=== PATIENT | female | born 1980 | race Caucasian/White ===

== ENCOUNTER 2016-06-21 11:36 | Emergency (ER) | payer OTHER ==
[~2016-06-21 11:36] MED LIST: AMOXICILLIN500 M1 PO; BACTROBAN22 GM TP; DOXYCYCLINE PO; FELDENE10 MG; FIORICET W/CODE1 CAP PO; FLEXERIL10 M1; KEFLEX500 M1 PO; MIGRELIEF CAPL1 EACH PO; PHENERGAN PO; PHENERGAN25 M1 PO; TORADOL10 MG; ULTRAM PO; VERAPAMIL ER120 M1 PO; VICODIN 5/1 TAB 5/50 PO; ZITHROMAX PO
== END 2016-06-21 11:50 | disposition home or self-care (01) ==
LOC: CED 11:36
DX: J02.0 Streptococcal pharyngitis (principal); F17.200 Nicotine dependence, unspecified, uncomplicated; Z88.6 Allergy status to analgesic agent; Z88.8 Allergy status to other drugs, medicaments and biological substances
CPT/HCPCS: 99282